=== PATIENT | male | born 1955 | race African-American/Black ===

== ENCOUNTER 2017-06-23 19:44 | Emergency (ER) | payer OTHER, MEDICAID ==
[~2017-06-23] VITALS: Ht 190.5 cm; Wt 122.7 kg
[2017-06-23 19:51] VITALS: BP 119/81
== END 2017-06-23 21:00 | disposition left against medical advice (07) ==
LOC: ER 20:04
DX: M54.9 Dorsalgia, unspecified (principal); Z53.21 Procedure and treatment not carried out due to patient leaving prior to being seen by health care provider